=== PATIENT | male | born 1940 | race Caucasian/White ===

== ENCOUNTER 2023-01-25 10:38 | Inpatient (IN) | payer MEDICARE, OTHER ==
[~2023-01-25] VITALS: Ht 177.8 cm; Wt 54.4 kg
[2023-01-25] MEDS ORDERED: MULT-213 PO (11:11)
[2023-01-25] MEDS ORDERED: MAGN400O6 PO (11:11)
[2023-01-25] MEDS ORDERED: ALBU2.5V38 IH (11:11)
[2023-01-25] MEDS ORDERED: BISA10SU61 RC (11:11)
[2023-01-25] MEDS ORDERED: NA P133E RC (11:11)
[2023-01-25] MEDS ORDERED: ASPI81TA31 PO (11:11)
[2023-01-25] MEDS ORDERED: CLOP75TA15 PO (11:11)
[2023-01-25] MEDS ORDERED: LISI20TA30 PO (11:11)
[2023-01-25] MEDS ORDERED: CHOL10005 PO (11:11)
[2023-01-25] MEDS ORDERED: ACET-2154 PO (11:11)
[2023-01-25] MEDS ORDERED: ASCO500T10 PO (11:11)
[2023-01-25] MEDS ORDERED: MAGN400C PO (11:11)
[2023-01-25] MEDS ORDERED: ACET-2605 PO (11:11)
--- NOTE | 2023-01-25 11:22 | NUR ---
PT IS IN ROOM #3. DR ROMERO EVALUATED THE PT.
[2023-01-25] MEDS ORDERED: PIPERACILLIN SODIUM/TAZOBACTAM 3.375 G in IV DEXTROSE 5% 50 ML IV ONE (11:30)
[2023-01-25] MEDS ORDERED: VANCOMYCIN 1G/D5W 200 ML PIGGYBACK IV ONE (11:30)
[2023-01-25] MEDS ORDERED: VANCOMYCIN IV 200 ML ONE (11:42)
[2023-01-25] MEDS ORDERED: PIPERACILLIN/TAZOBACTAM/D5W 50 ML IV ONE (11:43)
[2023-01-25 11:52] LABS: CARBON DIOXIDE 30 mmol/L (21-32); CHLORIDE 103 mmol/L (98-107); CREATININE 1.3 mg/dL (0.6-1.3); GLUCOSE 166 mg/dL (74-106); POTASSIUM 2.9 mmol/L (3.5-5.1); UREA NITROGEN, BLOOD 51 mg/dL (7-18)
[2023-01-25 11:53] LABS: HEMATOCRIT 21.8 % (36.7-47.1); MEAN CORPUSCULAR VOLUME 87.4 fL (73.0-96.2); PLATELET COUNT (AUTO) 351 K/uL (152-348)
[2023-01-25 12:01] LABS: ALANINE AMINOTRANSFERASE 14 U/L (16-63); ALKALINE PHOSPHATASE 50 U/L (50-136); ASPARTATE AMINOTRANSFERASE 24 U/L (15-37); BILIRUBIN,DIRECT 0.1 mg/dL (0.0-0.2); BILIRUBIN,TOTAL 0.2 mg/dL (0.2-1.0); TOTAL PROTEIN, SERUM 6.6 g/dL (6.4-8.2)
[2023-01-25] MEDS ORDERED: POTASSIUM CHLORIDE 20 MEQ TAB.PRT.SR PO ONE (12:30)
[2023-01-25] MEDS: MAGNESIUM SULFATE/D5W 100 ML IV SCH ×2 (12:30→13:30)
[2023-01-25] MEDS ORDERED: MAGNESIUM SULFATE/D5W 200 ML ONE (12:35)
[2023-01-25] MEDS ORDERED: POTASSIUM CHLORIDE 150 ML ONE (12:36)
[2023-01-25] MEDS ORDERED: POTASSIUM CHLORIDE 20 MEQ TAB.PRT.SR ONE (12:36)
[2023-01-25] MEDS: POTASSIUM CHLORIDE 50 ML IV SCH ×4 (12:48→15:27)
[2023-01-25] MEDS ORDERED: AZITHROMYCIN IV 500 MG in IV DEXTROSE 5% 250 ML IV ONE (13:30)
[2023-01-25] MEDS ORDERED: AZITHROMYCIN 500MG/ D5W 250ML IVPB **ER PYXIS ONLY IV ONE (13:44)
[2023-01-25 14:10] LABS: *OCCULT BLOOD STOOL POSITIVE (NEGATIVE)
[2023-01-25 17:04] VITALS: BP 142/78
--- NOTE | 2023-01-25 17:14 | NUR ---
REPORT WAS GIVEN TO DRAW PRESS OPERATOR. PT WAS TRANSFERED TO ROOM #318.
--- NOTE | 2023-01-25 17:15 | NUR ---
RECEIVED PATIENT FROM ED 82 YEARS OLD MALE BY REID WITH DX OF SEPSIS PLACED INTO BED FIXED AND MADE COMFORTABLE PATIENT IS ALERT AND ASSISTED WITH THE ADMISSION PROTOCOL ORIENTED HIM TO HIS ROOM AND FLOOR PROTOCOL.ON ROOM AIR WITH NO SHORTNESS OF BREATH AT THIS TIME.POOR SKIN INTERGRITY SEE PICS MADE COMFORTABLE CALLED DR DANIEL AND LEFT HIM A MESSAGE THAT PATIENT IS HERE
[2023-01-25] MEDS ORDERED: ONDANSETRON 4 MG/2 ML VIAL IV PRN (17:45)
[2023-01-25] MEDS ORDERED: ALBUTEROL SULFATE 2.5 MG/3 ML NEBU IH PRN (17:45)
[2023-01-25] MEDS ORDERED: BISACODYL 10 MG SUPP.RECT RC PRN (17:45)
[2023-01-25] MEDS ORDERED: HYDROCODONE/APAP 5-325MG TABLET PO PRN (17:45)
--- NOTE | 2023-01-25 18:00 | NUR ---
WAS SEEN AND EXAMINED BY DR AZUL WITH NO NEW ORDERS AT THIS TIME PATIENT REFUSED TO EAT DINNER STATED THAT HE IS NOT HUNGRY AT THIS TIME WILL OFFER SNACKS NEEDED TONIGHT.
[2023-01-25] MEDS ORDERED: ACETAMINOPHEN 325 MG TABLET PO PRN (19:30)
[2023-01-25 20:00] VITALS: BP 151/95
[2023-01-25] MEDS: PIPERACILLIN SODIUM/TAZOBACTAM 3.375 G in IV DEXTROSE 5% 100 ML IV SCH (20:05)
[2023-01-25] MEDS: MAGNESIUM OXIDE 400 MG TABLET PO SCH (20:41)
[2023-01-25] MEDS: PANTOPRAZOLE SODIUM 40 MG TABLET.DR PO SCH (20:41)
[2023-01-25] MEDS ORDERED: PIPERACILLIN SODIUM/TAZOBACTAM 3.375 G in IV DEXTROSE 5% 50 ML IV SCH (22:00)
[2023-01-25 23:04] VITALS: BP 88/49
[2023-01-25 23:35] VITALS: BP 84/50
--- NOTE | 2023-01-25 23:35 | NUR ---
Started blood transfusion, monitored closely and no adverse reaction noted after 15 mins.
[2023-01-26] VITALS (7 sets, daily range): BP systolic 80–126; BP diastolic 45–84
--- NOTE | 2023-01-26 02:00 | NUR ---
Blood transfusion completed, no adverse reaction noted. VS BP 94/57 T97.7 P75 R18.
[2023-01-26 03:31] LABS: *BILIRUBIN,URIN NEGATIVE (NEGATIVE); *BLOOD, URINE NEGATIVE (NEGATIVE); *CLARITY,URINE CLEAR (CLEAR); *COLOR,URINE YELLOW (YELLOW); *KETONES,URINE NEGATIVE (NEGATIVE); *UROBILINOGEN,URINE 0.2 E.U./dl (NORMAL); LEUKOCYTE ESTERASE ,URINE NEGATIVE (NEGATIVE); NITRITE, URINE NEGATIVE (NEGATIVE); PH,URINE 5.5 (5.0-8.0); UGLUCOSE NEGATIVE (NEGATIVE)
[2023-01-26] MEDS: PIPERACILLIN SODIUM/TAZOBACTAM 3.375 G in IV DEXTROSE 5% 100 ML IV SCH ×3 (04:00→20:10)
--- NOTE | 2023-01-26 06:20 | NUR ---
Slept well, easy to arouse alert and oriented x3. No acute respiratory distress noted. No adverse reaction from antibiotic and blood transfusion. Needs assessed and attended to.
[2023-01-26 06:43] LABS: HEMATOCRIT 30.6 % (36.7-47.1); MEAN CORPUSCULAR VOLUME 87.1 fL (73.0-96.2); PLATELET COUNT (AUTO) 331 K/uL (152-348)
[2023-01-26 07:07] LABS: THYROID STIMULATING HORMONE 1.874 mIU/mL (0.358-3.740)
[2023-01-26 07:15] LABS: ALANINE AMINOTRANSFERASE 14 U/L (16-63); ALKALINE PHOSPHATASE 51 U/L (50-136); ASPARTATE AMINOTRANSFERASE 26 U/L (15-37); BILIRUBIN,TOTAL 0.3 mg/dL (0.2-1.0); CARBON DIOXIDE 30 mmol/L (21-32); CHLORIDE 105 mmol/L (98-107); CHOLESTEROL 127 mg/dL (<200); CREATININE 0.9 mg/dL (0.6-1.3); GLUCOSE 97 mg/dL (74-106); HDL CHOLESTEROL 26 mg/dL (40-60); MAGNESIUM 1.6 mg/dL (1.8-2.4); PHOSPHOROUS 2.7 mg/dL (2.5-4.9); POTASSIUM 3.6 mmol/L (3.5-5.1); TOTAL PROTEIN, SERUM 6.4 g/dL (6.4-8.2); TRIGLYCERIDES 129 MG/DL (30-150); UREA NITROGEN, BLOOD 40 mg/dL (7-18)
--- NOTE | 2023-01-26 08:30 | NUR ---
critical lab value reported. [id number]. made aware. no new orders at this time
[2023-01-26] MEDS: CHOLECALCIFEROL 1,000 UNIT TABLET PO SCH (08:49)
[2023-01-26] MEDS: ASCORBIC ACID 500 MG TABLET PO SCH (08:49)
[2023-01-26] MEDS: VANCOMYCIN IV 750 MG in IV DEXTROSE 5% 250 ML IV SCH (08:49)
[2023-01-26] MEDS: PANTOPRAZOLE SODIUM 40 MG TABLET.DR PO SCH ×2 (08:50→20:44)
[2023-01-26] MEDS: MULTIVIT, IRON, MIN NO. 8, FA TABLET PO SCH (08:51)
[2023-01-26 09:02] LABS: IRON, SERUM 19 ug/dL (50-175)
[2023-01-26] MEDS: ASPIRIN 81 MG TAB.CHEW PO SCH (09:33)
[2023-01-26] MEDS ORDERED: REMEDY ESSENTIAL ZINC PASTE 113 GM TOP PRN (11:45)
--- NOTE | 2023-01-26 11:51 | NUR ---
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 PT IS VERY THIN AND BONY. DR BELTRAN AND DR EDWARDS CALLED FOR SURGICAL AND DPM CONSULTS. DISCUSSED SKIN PROTECTION WITH NURSING STAFF. PT IS INCONTINENT. FIRST STEP LOW AIRLOSS MATTRESS IS ON ORDER. MD IN AGREEMENT WITH PLAN OF CARE. Addendum: 01/26/23 at 1153 by MIGUEL ANGEL SINGH RN Amended: Links added.
[2023-01-26] MEDS ORDERED: MAGNESIUM SULFATE/D5W 100 ML IV SCH (12:00)
--- NOTE | 2023-01-26 12:00 | NUR ---
pt was seen by the wound care nurse. new orders carried out.
[2023-01-26] MEDS: SODIUM HYPOCHLORITE 0.125% (QUARTER STRENGTH) 473 ML BOTTLE TP SCH (14:03)
[2023-01-26] MEDS: REMEDY ESSENTIAL ZINC PASTE 113 GM TOP SCH ×2 (14:03→20:44)
--- NOTE | 2023-01-26 18:13 | NUR ---
sacral wound tx and r foot gangrene wound tx done.
[2023-01-26] MEDS: MAGNESIUM OXIDE 400 MG TABLET PO SCH (20:44)
[2023-01-26] MEDS: ATORVASTATIN 40 MG TABLET PO SCH (20:44)
[2023-01-27 00:23] VITALS: BP 134/66
[2023-01-27] MEDS: VANCOMYCIN IV 750 MG in IV DEXTROSE 5% 250 ML IV SCH (04:00)
[2023-01-27] MEDS: PIPERACILLIN SODIUM/TAZOBACTAM 3.375 G in IV DEXTROSE 5% 100 ML IV SCH (04:01)
[2023-01-27 04:35] VITALS: BP 130/70
[2023-01-27 06:51] LABS: MEAN CORPUSCULAR HEMOGLOBIN 28.5 uug (23.8-33.4); MEAN CORPUSCULAR VOLUME 87.4 fL (73.0-96.2); PLATELET COUNT (AUTO) 321 K/uL (152-348)
[2023-01-27 07:46] LABS: ALANINE AMINOTRANSFERASE 11 U/L (16-63); ALKALINE PHOSPHATASE 52 U/L (50-136); ASPARTATE AMINOTRANSFERASE 16 U/L (15-37); BILIRUBIN,TOTAL 0.2 mg/dL (0.2-1.0); CARBON DIOXIDE 29 mmol/L (21-32); CHLORIDE 104 mmol/L (98-107); CREATININE 0.7 mg/dL (0.6-1.3); GLUCOSE 128 mg/dL (74-106); MAGNESIUM 1.4 mg/dL (1.8-2.4); PHOSPHOROUS 2.4 mg/dL (2.5-4.9); POTASSIUM 3.1 mmol/L (3.5-5.1); TOTAL PROTEIN, SERUM 6.1 g/dL (6.4-8.2); UREA NITROGEN, BLOOD 27 mg/dL (7-18)
[2023-01-27] MEDS: MULTIVIT, IRON, MIN NO. 8, FA TABLET PO SCH (08:28)
[2023-01-27] MEDS: ASCORBIC ACID 500 MG TABLET PO SCH (08:28)
[2023-01-27] MEDS: ASPIRIN 81 MG TAB.CHEW PO SCH (08:28)
[2023-01-27] MEDS: CHOLECALCIFEROL 1,000 UNIT TABLET PO SCH (08:28)
[2023-01-27] MEDS: PANTOPRAZOLE SODIUM 40 MG TABLET.DR PO SCH ×2 (08:28→20:25)
[2023-01-27] MEDS: METOPROLOL TARTRATE 25 MG TABLET PO SCH ×2 (08:31→20:29)
[2023-01-27] MEDS: REMEDY ESSENTIAL ZINC PASTE 113 GM TOP SCH ×2 (08:39→21:07)
[2023-01-27] MEDS: SODIUM HYPOCHLORITE 0.125% (QUARTER STRENGTH) 473 ML BOTTLE TP SCH (08:40)
[2023-01-27] MEDS: CLOPIDOGREL 75 MG TABLET PO SCH (08:56)
--- NOTE | 2023-01-27 08:59 | NUR ---
Received a call from Lab by Kamran that pt. has a critical lab value of Troponin 1186. It reported to Dr. Valerio and no new order received.
[2023-01-27] MEDS ORDERED: MAGNESIUM OXIDE 400 MG TABLET PO ONE (09:00)
[2023-01-27] MEDS: POTASSIUM CHLORIDE 50 ML IV SCH ×2 (09:32→10:37)
[2023-01-27] MEDS ORDERED: POTASSIUM PHOSPHATE MM 15 MMOL in IV NORMAL SALINE 250 ML IV ONE (10:00)
[2023-01-27 11:43] VITALS: BP 94/48
[2023-01-27] MEDS: PROTEIN SUPPLEMENT (PROSTAT) 30 ML LIQUID PO SCH ×2 (12:12→16:11)
[2023-01-27 15:49] VITALS: BP 115/65
--- NOTE | 2023-01-27 16:49 | NUR ---
Pt. has been stable during the shift. Compliance with the care given. All need attended and met. Kept the pt. clean and dry. Skin treatment done. No c/o pain during the shift. Schedule medications given and no averse reaction noted. Pt. is repositioned every 2 hours and as needed. Will keep monitoring the patient.
[2023-01-27 20:00] VITALS: BP 133/70
[2023-01-27] MEDS: MAGNESIUM OXIDE 400 MG TABLET PO SCH (20:25)
[2023-01-27] MEDS: ATORVASTATIN 40 MG TABLET PO SCH (20:25)
[2023-01-28] VITALS: BP 126/68
[2023-01-28 04:00] VITALS: BP 130/64
[2023-01-28 06:14] LABS: HEMATOCRIT 30.7 % (36.7-47.1); MEAN CORPUSCULAR HEMOGLOBIN 28.7 uug (23.8-33.4); MEAN CORPUSCULAR VOLUME 86.3 fL (73.0-96.2); PLATELET COUNT (AUTO) 328 K/uL (152-348)
[2023-01-28 06:22] LABS: ALANINE AMINOTRANSFERASE 11 U/L (16-63); ALKALINE PHOSPHATASE 55 U/L (50-136); ASPARTATE AMINOTRANSFERASE 13 U/L (15-37); BILIRUBIN,TOTAL 0.2 mg/dL (0.2-1.0); CARBON DIOXIDE 30 mmol/L (21-32); CHLORIDE 106 mmol/L (98-107); CREATININE 0.7 mg/dL (0.6-1.3); GLUCOSE 106 mg/dL (74-106); MAGNESIUM 1.4 mg/dL (1.8-2.4); PHOSPHOROUS 2.6 mg/dL (2.5-4.9); POTASSIUM 3.4 mmol/L (3.5-5.1); TOTAL PROTEIN, SERUM 6.1 g/dL (6.4-8.2); UREA NITROGEN, BLOOD 23 mg/dL (7-18)
[2023-01-28] MEDS ORDERED: POTASSIUM CHLORIDE 20 MEQ POWDER PACKET PO ONE (08:00)
[2023-01-28] MEDS: POTASSIUM CHLORIDE 50 ML IV SCH ×4 (08:09→11:55)
[2023-01-28] MEDS: MULTIVIT, IRON, MIN NO. 8, FA TABLET PO SCH (08:10)
[2023-01-28] MEDS: PANTOPRAZOLE SODIUM 40 MG TABLET.DR PO SCH ×2 (08:10→21:47)
[2023-01-28] MEDS: CHOLECALCIFEROL 1,000 UNIT TABLET PO SCH (08:10)
[2023-01-28] MEDS: METOPROLOL TARTRATE 25 MG TABLET PO SCH ×2 (08:13→21:54)
[2023-01-28] MEDS: ASPIRIN 81 MG TAB.CHEW PO SCH (08:13)
[2023-01-28] MEDS: ASCORBIC ACID 500 MG TABLET PO SCH (08:14)
[2023-01-28] MEDS: CLOPIDOGREL 75 MG TABLET PO SCH (08:14)
[2023-01-28] MEDS: PROTEIN SUPPLEMENT (PROSTAT) 30 ML LIQUID PO SCH ×3 (08:15→16:18)
[2023-01-28] MEDS: MAGNESIUM SULFATE/D5W 100 ML IV SCH ×4 (08:26→11:55)
[2023-01-28] MEDS: REMEDY ESSENTIAL ZINC PASTE 113 GM TOP SCH ×2 (09:07→21:48)
[2023-01-28] MEDS: SODIUM HYPOCHLORITE 0.125% (QUARTER STRENGTH) 473 ML BOTTLE TP SCH (09:09)
[2023-01-28] MEDS: GLUCERNA SHAKE 237 ML CAN PO SCH (09:09)
[2023-01-28 11:35] VITALS: BP 137/74
--- NOTE | 2023-01-28 16:11 | NUR ---
Pt. has been stable during the shift. Skin treatment done. no c/o pain. Call light within reach. Pt. was kept clean and dry during the shift. Will keep monitoring the patient.
[2023-01-28 16:44] VITALS: BP 141/79
--- NOTE | 2023-01-28 19:30 | NUR ---
Change of shift report received from SEKOU Dixon.
[2023-01-28] MEDS: MAGNESIUM OXIDE 400 MG TABLET PO SCH (21:47)
[2023-01-28] MEDS: ATORVASTATIN 40 MG TABLET PO SCH (21:47)
[2023-01-29 04:57] VITALS: BP 122/69
[2023-01-29 07:35] LABS: HEMATOCRIT 33.3 % (36.7-47.1); MEAN CORPUSCULAR HEMOGLOBIN 28.5 uug (23.8-33.4); MEAN CORPUSCULAR VOLUME 87.3 fL (73.0-96.2); PLATELET COUNT (AUTO) 342 K/uL (152-348)
[2023-01-29 07:52] LABS: CARBON DIOXIDE 29 mmol/L (21-32); CHLORIDE 104 mmol/L (98-107); CREATININE 0.8 mg/dL (0.6-1.3); GLUCOSE 104 mg/dL (74-106); MAGNESIUM 1.7 mg/dL (1.8-2.4); PHOSPHOROUS 2.7 mg/dL (2.5-4.9); POTASSIUM 4.2 mmol/L (3.5-5.1); UREA NITROGEN, BLOOD 23 mg/dL (7-18)
[2023-01-29] MEDS: CLOPIDOGREL 75 MG TABLET PO SCH (08:13)
[2023-01-29] MEDS: ASPIRIN 81 MG TAB.CHEW PO SCH (08:13)
[2023-01-29] MEDS: CHOLECALCIFEROL 1,000 UNIT TABLET PO SCH (08:13)
[2023-01-29] MEDS: PANTOPRAZOLE SODIUM 40 MG TABLET.DR PO SCH (08:13)
[2023-01-29] MEDS: ASCORBIC ACID 500 MG TABLET PO SCH (08:13)
[2023-01-29] MEDS: MULTIVIT, IRON, MIN NO. 8, FA TABLET PO SCH (08:13)
[2023-01-29] MEDS: METOPROLOL TARTRATE 25 MG TABLET PO SCH (08:14)
[2023-01-29] MEDS: PROTEIN SUPPLEMENT (PROSTAT) 30 ML LIQUID PO SCH ×3 (08:15→17:24)
[2023-01-29] MEDS: REMEDY ESSENTIAL ZINC PASTE 113 GM TOP SCH (08:15)
[2023-01-29] MEDS: GLUCERNA SHAKE 237 ML CAN PO SCH (08:15)
[2023-01-29] MEDS: SODIUM HYPOCHLORITE 0.125% (QUARTER STRENGTH) 473 ML BOTTLE TP SCH (08:22)
[2023-01-29] MEDS: MAGNESIUM SULFATE/D5W 100 ML IV SCH ×2 (10:57→11:57)
[2023-01-29 11:34] VITALS: BP 118/59
[2023-01-29] MEDS ORDERED: PROT30LI PO (15:55)
[2023-01-29] MEDS ORDERED: HYDR-3972 PO (15:55)
[2023-01-29] MEDS ORDERED: MENT113O TOP (15:55)
[2023-01-29] MEDS ORDERED: NUT.237L36 PO (15:55)
[2023-01-29] MEDS ORDERED: ATOR20TA PO (15:55)
[2023-01-29] MEDS ORDERED: METO25TA6 PO (15:55)
[2023-01-29] MEDS ORDERED: PANT40TA2 PO (15:55)
[2023-01-29] MEDS ORDERED: SODI473S8 TP (15:55)
[2023-01-29] MEDS ORDERED: ACET325T53 PO (15:55)
[2023-01-29] MEDS ORDERED: ASPI-1101 PO (15:55)
[2023-01-29 16:10] VITALS: BP 139/70
--- NOTE | 2023-01-29 18:01 | NUR ---
[facility] Pt. was stable upon the discharge. All necessary document signed. Body check done and pictures included in pt. chart. IV lines removed. All personal belonging returned to the patient. Called [facility] and gave report to
[2023-01-29] MEDS ORDERED: MAGNESIUM OXIDE 400 MG TABLET PO SCH (21:00)
== END 2023-01-29 19:00 | DRG 871 ==
LOC: ER 10:38 → TELE3 15:22 → MEDSURG3 01-28 07:50
PROVIDERS: ADMIT Internal Medicine; ATTEND Internal Medicine
DX: A41.9 Sepsis, unspecified organism (principal); E43 Unspecified severe protein-calorie malnutrition; G92.8 Other toxic encephalopathy; I21.A1 Myocardial infarction type 2; J69.0 Pneumonitis due to inhalation of food and vomit; I50.33 Acute on chronic diastolic (congestive) heart failure; N17.0 Acute kidney failure with tubular necrosis; L89.154 Pressure ulcer of sacral region, stage 4; I70.261 Atherosclerosis of native arteries of extremities with gangrene, right leg; Z68.1 Body mass index [BMI] 19.9 or less, adult; D68.59 Other primary thrombophilia; R64 Cachexia; I70.92 Chronic total occlusion of artery of the extremities; L97.318 Non-pressure chronic ulcer of right ankle with other specified severity; M24.572 Contracture, left ankle; M25.471 Effusion, right ankle; E87.6 Hypokalemia; I11.0 Hypertensive heart disease with heart failure; D64.9 Anemia, unspecified; R62.7 Adult failure to thrive; Z74.09 Other reduced mobility; I70.0 Atherosclerosis of aorta; Z20.822 Contact with and (suspected) exposure to COVID-19; Z98.42 Cataract extraction status, left eye; Z98.41 Cataract extraction status, right eye; Z98.890 Other specified postprocedural states; Z87.891 Personal history of nicotine dependence; Z79.02 Long term (current) use of antithrombotics/antiplatelets; Z79.82 Long term (current) use of aspirin
CPT/HCPCS: 36415; 71045; 73630; 83550; 83605; 83735; 84100; 84443; 84484; 85025; 85730; 86850; 86900; 86901; 86920; 87040; 93005; 93307; A4663; A6209; A6213; G0378; J0456; J2543; J3370; J3475; J3480; J3490; J7040; J7050; P9016